=== PATIENT | female | born 1950 | race Caucasian/White ===

== ENCOUNTER 2020-07-17 13:56 | Emergency (ER) | payer MEDICARE, OTHER ==
[~2020-07-17] VITALS: Ht 162.6 cm; Wt 100.0 kg
[2020-07-17 16:10] VITALS: BP 122/78
== END 2020-07-17 16:11 | disposition home or self-care (01) ==
LOC: ER 14:24 → EDBD 14:24 → ER 16:11
DX: S09.21XA Traumatic rupture of right ear drum, initial encounter (principal); W22.8XXA Striking against or struck by other objects, initial encounter; Y93.E8 Activity, other personal hygiene; Y92.012 Bathroom of single-family (private) house as the place of occurrence of the external cause; I10 Essential (primary) hypertension
CPT/HCPCS: 99281

== ENCOUNTER 2021-02-24 17:42 | Emergency (ER) | payer MEDICARE, MEDICAID ==
[~2021-02-24] VITALS: Ht 160 cm; Wt 61.0 kg
[2021-02-24] MEDS ORDERED: ASPIRIN 81MG TABLET PO ONE (18:30)
[2021-02-24] MEDS ORDERED: ONDANSETRON HCL 4MG/2ML INJ IV ONE (18:30)
[2021-02-24] MEDS ORDERED: SODIUM CHLORIDE 0.9% 1,000 ML IV ONE (18:30)
[2021-02-24 18:42] LABS: CHLORIDE 111 mEq/L (98-107)
[2021-02-24 18:48] LABS: HEMATOCRIT. 40.1 % (36.0-48.0); HEMOGLOBIN. 13.5 g/dL (12.0-16.0); MEAN CORPUSCULAR HEMOGLOBIN 30.5 pg (28.0-32.0); MEAN CORPUSCULAR VOLUME 90.8 fL (81.0-99.0); MEAN PLATELET VOLUME 8.1 fl (7.4-10.4); PLATELET 235 x1000/uL (130-400); RED BLOOD CELL COUNT 4.42 mill/uL (4.2-5.4); RED CELL DISTRIBUTION WIDTH 14.1 % (11.6-14.6)
[2021-02-24 21:41] LABS: PLATELET ESTIMATE NORMAL
[2021-02-24 23:50] VITALS: BP 146/94
== END 2021-02-24 23:50 | disposition home or self-care (01) ==
LOC: ER 17:42
DX: R06.02 Shortness of breath (principal); E78.00 Pure hypercholesterolemia, unspecified; I10 Essential (primary) hypertension
CPT/HCPCS: 36415; 71045; 80053; 83690; 83880; 84484; 85025; 93005; 99285; J7030

== ENCOUNTER 2021-03-30 11:00 | Inpatient (IN) | payer MEDICARE, MEDICAID ==
[~2021-03-30] VITALS: Ht 167.6 cm; Wt 73.0 kg
[2021-03-30 12:05] LABS: HEMATOCRIT. 36.9 % (36.0-48.0); HEMOGLOBIN. 12.7 g/dL (12.0-16.0); MEAN CORPUSCULAR HEMOGLOBIN 31.3 pg (28.0-32.0); MEAN CORPUSCULAR VOLUME 90.7 fL (81.0-99.0); MEAN PLATELET VOLUME 8.4 fl (7.4-10.4); PLATELET 138 x1000/uL (130-400); RED BLOOD CELL COUNT 4.06 mill/uL (4.2-5.4); RED CELL DISTRIBUTION WIDTH 13.8 % (11.6-14.6)
[2021-03-30 12:14] LABS: CHLORIDE 93 mEq/L (98-107)
[2021-03-30] MEDS ORDERED: FAMOTIDINE 20MG/2ML VIAL IV STA (12:17)
[2021-03-30] MEDS ORDERED: ONDANSETRON HCL 4MG/2ML INJ IV STA (12:17)
[2021-03-30] MEDS ORDERED: SODIUM CHLORIDE 0.9% 500 ML IV ONE (12:30)
[2021-03-30 12:55] LABS: PLATELET ESTIMATE NORMAL
[2021-03-30 14:17] LABS: CLARITY URINE CLEAR (CLEAR); COLOR URINE YELLOW (YELLOW); KETONES URINE NEGATIVE (NEGATIVE); LEUKOCYTE ESTERASE URINE 1+ (NEGATIVE); NITRITE URINE NEGATIVE (NEGATIVE); OCCULT BLOOD URINE 2+ (NEGATIVE); PH URINE 6.5 (4.5-8.0); PROTEIN URINE 2+ (NEGATIVE); SPECIFIC GRAVITY URINE 1.009 (1.005-1.030); UROBILINOGEN URINE 0.2 E.U./dL (0.2-1.0)
[2021-03-30] MEDS ORDERED: ACETAMINOPHEN 325MG TABLET PO ONE (14:30)
[2021-03-30] MEDS ORDERED: SODIUM CHLORIDE 0.9% 1000ML BAG (SEPSIS BOLUS) IV ONE (14:30)
[2021-03-30] MEDS ORDERED: LEVOFLOXACIN 500MG PREMIX 100 ML IV ONE (14:30)
[2021-03-30] MEDS ORDERED: CEFTRIAXONE 1 G PREMIX 50 ML IV ONE (14:30)
[2021-03-30 20:06] VITALS: BP 133/73
[2021-03-30] MEDS ORDERED: ONDANSETRON HCL 4MG/2ML INJ IV PRN (20:15)
[2021-03-30] MEDS ORDERED: ACETAMINOPHEN 325MG TABLET PO PRN (20:15)
[2021-03-30 20:53] LABS: HEMATOCRIT. 35.8 % (36.0-48.0); MEAN CORPUSCULAR HEMOGLOBIN 30.6 pg (28.0-32.0); MEAN PLATELET VOLUME 8.3 fl (7.4-10.4); PLATELET 131 x1000/uL (130-400); RED BLOOD CELL COUNT 3.94 mill/uL (4.2-5.4); RED CELL DISTRIBUTION WIDTH 13.6 % (11.6-14.6)
[2021-03-30 21:17] LABS: CHLORIDE 101 mEq/L (98-107)
[2021-03-30 21:34] LABS: PLATELET ESTIMATE NORMAL
[2021-03-30] MEDS: DEXT 5%/0.45% NACL KCL 20MEQ/L 1,000 ML IV SCH (22:06)
[2021-03-30] MEDS: PIPERACILLIN/TAZOBACTAM 3.375 G in DEXTROSE 5% WATER 50 ML IV SCH (22:06)
[2021-03-30] MEDS: ENOXAPARIN 40MG/0.4ML SYR SUBCUT SCH (22:06)
[2021-03-31] VITALS: BP 133/74
[2021-03-31] MEDS ORDERED: POTASSIUM CHLORIDE INJ 50 MEQ in DEXT 5% WATER 250 ML IV SCH (01:00)
[2021-03-31 04:00] VITALS: BP 148/83
[2021-03-31] MEDS: PIPERACILLIN/TAZOBACTAM 3.375 G in DEXTROSE 5% WATER 50 ML IV SCH ×3 (06:31→22:09)
[2021-03-31 06:54] LABS: HEMATOCRIT. 33.7 % (36.0-48.0); HEMOGLOBIN. 11.3 g/dL (12.0-16.0); MEAN CORPUSCULAR HEMOGLOBIN 30.7 pg (28.0-32.0); MEAN CORPUSCULAR VOLUME 91.6 fL (81.0-99.0); PLATELET 137 x1000/uL (130-400); RED BLOOD CELL COUNT 3.68 mill/uL (4.2-5.4); RED CELL DISTRIBUTION WIDTH 13.7 % (11.6-14.6)
[2021-03-31 07:30] LABS: CHLORIDE 101 mEq/L (98-107)
[2021-03-31 07:59] VITALS: BP 142/75
[2021-03-31] MEDS ORDERED: POTASSIUM CHLORIDE 20MEQ TABLET SR PO SCH (08:30)
[2021-03-31] MEDS: PANTOPRAZOLE SODIUM 40 MG/VIAL IV SCH (09:18)
[2021-03-31 12:28] VITALS: BP 147/76
[2021-03-31] MEDS: DEXT 5%/0.45% NACL KCL 20MEQ/L 1,000 ML IV SCH (12:55)
[2021-03-31] MEDS ORDERED: BISACODYL 10MG SUPP PR PRN (14:45)
[2021-03-31] MEDS ORDERED: NALOXONE HCL 0.4MG/ML VIAL IV PRN (14:45)
[2021-03-31] MEDS ORDERED: LACTULOSE 20G/30ML UDC PO PRN (14:45)
[2021-03-31] MEDS ORDERED: DIPHENHYDRAMINE 50MG/ML VIAL IV PRN (14:45)
[2021-03-31] MEDS ORDERED: IPRATROPIUM/ALBUTEROL 0.5-3(2.5)MG/3ML NEB HHN PRN (14:45)
[2021-03-31] MEDS ORDERED: MORPHINE SULFATE 2 MG/ML CPJ (NOT FOR IM USE) IV PRN (14:45)
[2021-03-31 15:20] LABS: PLATELET ESTIMATE NORMAL
[2021-03-31 16:00] VITALS: BP 133/74
[2021-03-31 18:30] LABS: INR 1.1; PROTHROMBIN TIME 11.9 sec (9.6-11.0)
[2021-03-31 20:00] VITALS: BP 140/78
[2021-03-31] MEDS: ENOXAPARIN 40MG/0.4ML SYR SUBCUT SCH (22:10)
[2021-03-31] MEDS: HYDROCODONE/ACETAMINOPHEN 5/325MG TABLET PO PRN (22:11)
[2021-04-01] VITALS: BP 134/68
[2021-04-01] MEDS: DEXT 5%/0.45% NACL KCL 20MEQ/L 1,000 ML IV SCH ×2 (00:40→14:00)
[2021-04-01 04:00] VITALS: BP 137/75
[2021-04-01] MEDS: PIPERACILLIN/TAZOBACTAM 3.375 G in DEXTROSE 5% WATER 50 ML IV SCH ×2 (05:22→14:04)
[2021-04-01 08:00] VITALS: BP 153/86
[2021-04-01 08:08] LABS: HEMATOCRIT. 34.8 % (36.0-48.0); HEMOGLOBIN. 11.8 g/dL (12.0-16.0); MEAN CORPUSCULAR HEMOGLOBIN 30.7 pg (28.0-32.0); MEAN CORPUSCULAR VOLUME 90.6 fL (81.0-99.0); MEAN PLATELET VOLUME 8.9 fl (7.4-10.4); PLATELET 164 x1000/uL (130-400); RED BLOOD CELL COUNT 3.85 mill/uL (4.2-5.4); RED CELL DISTRIBUTION WIDTH 13.7 % (11.6-14.6)
[2021-04-01 08:11] LABS: CHLORIDE 100 mEq/L (98-107)
[2021-04-01 08:21] LABS: LDL CHOLESTEROL 69 mg/dL (5-100)
[2021-04-01 08:22] LABS: HDL CHOLESTEROL 10 mg/dL (40-59)
[2021-04-01 08:23] LABS: T4 FREE 1.35 ng/dL (0.76-1.46)
[2021-04-01] MEDS: PANTOPRAZOLE SODIUM 40 MG/VIAL IV SCH (08:33)
[2021-04-01] MEDS: HYDROCODONE/ACETAMINOPHEN 5/325MG TABLET PO PRN (10:31)
[2021-04-01 12:00] VITALS: BP 152/68
[2021-04-01] MEDS ORDERED: POTASSIUM CHLORIDE 20MEQ TABLET SR PO NR (12:45)
[2021-04-01 16:00] VITALS: BP 157/84
[2021-04-01] MEDS ORDERED: LEVO500T89 MT (16:34)
[2021-04-01 16:59] VITALS: BP 157/84
[2021-04-01 17:31] LABS: PLATELET ESTIMATE NORMAL
[2021-04-01] MEDS ORDERED: LEVOFLOXACIN 500MG TABLET PO SCH (19:00)
== END 2021-04-01 18:22 | disposition home or self-care (01) | DRG 872 ==
LOC: ER 11:00 → ENRESERV 16:59 → 6WST 19:41
PROVIDERS: ADMIT Internal Medicine; ATTEND Internal Medicine
DX: A41.51 Sepsis due to Escherichia coli [E. coli] (principal); E87.1 Hypo-osmolality and hyponatremia; N10 Acute pyelonephritis; E44.1 Mild protein-calorie malnutrition; E87.6 Hypokalemia; E86.0 Dehydration; I10 Essential (primary) hypertension; Z20.822 Contact with and (suspected) exposure to COVID-19; E78.5 Hyperlipidemia, unspecified; E78.00 Pure hypercholesterolemia, unspecified; D64.9 Anemia, unspecified; K76.0 Fatty (change of) liver, not elsewhere classified; R73.9 Hyperglycemia, unspecified; Z90.49 Acquired absence of other specified parts of digestive tract; Z68.26 Body mass index [BMI] 26.0-26.9, adult
CPT/HCPCS: 36415; 71045; 74176; 80048; 80053; 80061; 81003; 83036; 83605; 83735; 84132; 84145; 84439; 84443; 84484; 85025; 87077; 87186; 87426; 93005; 93306; 93970; 99285; C9113; J0696; J1650; J1956; J2405; J2543; J3480; J3490; J7030; J7040; J7060

== ENCOUNTER 2022-06-29 09:48 | Emergency (ER) | payer MEDICARE, MEDICAID ==
[~2022-06-29] VITALS: Ht 165.1 cm; Wt 81.8 kg
[~2022-06-29 09:48] MED LIST: LEVO-65 MT
[2022-06-29 10:12] LABS: BASOPHILS % 0.8 % (0.0-2.0); EOSINOPHILS % 5.6 % (0.0-5.0); HEMATOCRIT. 38.7 % (36.0-48.0); HEMOGLOBIN. 13.4 g/dL (12.0-16.0); LYMPHOCYTES % 35.4 % (20.0-50.0); MEAN CORPUSCULAR HEMOGLOBIN 30.7 pg (28.0-32.0); MEAN CORPUSCULAR VOLUME 88.9 fL (81.0-99.0); MEAN PLATELET VOLUME 8.9 fl (7.4-10.4); MONOCYTES % 8.7 % (2.0-8.0); NEUTROPHILS % 49.5 % (40.0-76.0); PLATELET 228 x1000/uL (130-400); RED BLOOD CELL COUNT 4.35 mill/uL (4.2-5.4); RED CELL DISTRIBUTION WIDTH 13.2 % (11.6-14.6)
[2022-06-29 10:18] LABS: CHLORIDE 102 mEq/L (98-107)
[2022-06-29 11:00] LABS: CLARITY URINE CLEAR (CLEAR); COLOR URINE YELLOW (YELLOW); KETONES URINE NEGATIVE (NEGATIVE); LEUKOCYTE ESTERASE URINE TRACE (NEGATIVE); NITRITE URINE NEGATIVE (NEGATIVE); OCCULT BLOOD URINE NEGATIVE (NEGATIVE); PROTEIN URINE NEGATIVE (NEGATIVE); SPECIFIC GRAVITY URINE 1.007 (1.005-1.030); UROBILINOGEN URINE 0.2 E.U./dL (0.2-1.0)
[2022-06-29] MEDS ORDERED: IOHEXOL-300 100 ML BOTTLE ONE (12:48)
[2022-06-29] MEDS ORDERED: ONDANSETRON HCL 4MG/2ML INJ IV ONE (13:45)
[2022-06-29] MEDS ORDERED: FAMOTIDINE 20MG/2ML VIAL IV ONE (13:45)
[2022-06-29] MEDS ORDERED: SODIUM CHLORIDE 0.9% 1,000 ML IV ONE (13:45)
[2022-06-29] MEDS ORDERED: KETOROLAC 30MG/ML VIAL IV ONE (14:45)
[2022-06-29] MEDS ORDERED: DICYCLOMINE HCL 10MG CAPSULE PO ONE (14:45)
[2022-06-29 15:09] VITALS: BP 153/88
[2022-06-29] MEDS ORDERED: IBUP-2029 MT (16:14)
== END 2022-06-29 16:32 | disposition home or self-care (01) ==
LOC: ER 09:48
DX: R10.32 Left lower quadrant pain (principal)
CPT/HCPCS: 36415; 74177; 80053; 81003; 83690; 85025; 96361; 96374; 96375; 99285; J1885; J2405; J3490; J7030; Q9967

== ENCOUNTER 2023-02-24 10:07 | Emergency (ER) | payer MEDICARE, MEDICAID ==
[~2023-02-24] VITALS: Ht 162.6 cm; Wt 91.0 kg
[~2023-02-24 10:07] MED LIST changes: +IBUP-2029 MT
[2023-02-24 10:17] VITALS: BP 150/90; PULSE 81; RESP 16; TEMP 100.5; O2SAT 97
[2023-02-24 11:35] LABS: BASOPHILS % 1.2 % (0.0-2.0); EOSINOPHILS % 2.3 % (0.0-5.0); HEMATOCRIT. 43.4 % (36.0-48.0); HEMOGLOBIN. 14.7 g/dL (12.0-16.0); LYMPHOCYTES % 22.8 % (20.0-50.0); MEAN CORPUSCULAR HEMOGLOBIN 29.7 pg (28.0-32.0); MEAN CORPUSCULAR HGB CONC 33.9 g/dL (31.0-37.0); MEAN CORPUSCULAR VOLUME 87.6 fL (81.0-99.0); MEAN PLATELET VOLUME 8.6 fl (7.4-10.4); MONOCYTES % 11.3 % (2.0-8.0); NEUTROPHILS % 62.4 % (40.0-76.0); PLATELET 213 x1000/uL (130-400); RED BLOOD CELL COUNT 4.95 mill/uL (4.2-5.4); WHITE BLOOD COUNT 5.3 x1000/uL (4.5-11.0)
[2023-02-24 11:55] LABS: ALANINE AMINOTRANSFERASE 30 IU/L (10-49); ALBUMIN 4.6 g/dL (3.2-4.8); ASPARTATE AMINOTRANSFERASE 32 IU/L (<34); BILIRUBIN TOTAL 0.6 mg/dL (0.1-1.0); CALCIUM 9.9 mg/dL (8.7-10.4); CARBON DIOXIDE 29 mEq/L (21-32); CHLORIDE 101 mEq/L (98-107); CREATININE 0.8 mg/dL (0.6-1.0); GLUCOSE 123 mg/dL (70-105); POTASSIUM 4.1 mEq/L (3.5-5.1); PROTEIN TOTAL 7.3 g/dL (6.0-8.3); SODIUM 137 mEq/L (136-145); UREA NITROGEN BLOOD 8 mg/dL (9-23)
[2023-02-24 11:59] LABS: INR 1.1; PROTHROMBIN TIME 11.5 sec (9.6-11.0)
[2023-02-24 12:16] LABS: TROPONIN I HIGH SENSITIVITY < 4 ng/L (3.0-34)
[2023-02-24] MEDS ORDERED: IBUPROFEN 800MG TABLET PO ONE (13:45)
[2023-02-24] MEDS ORDERED: IBUP-2030 MT (14:11)
[2023-02-24] MEDS ORDERED: ACET-2708 MT (14:11)
[2023-02-24] MEDS ORDERED: IBUPROFEN 400MG TABLET PO NR (20:45)
== END 2023-02-24 14:11 | disposition home or self-care (01) ==
LOC: ER 10:07
DX: R05.9 Cough, unspecified (principal); R50.9 Fever, unspecified; I10 Essential (primary) hypertension; E78.00 Pure hypercholesterolemia, unspecified; Z90.49 Acquired absence of other specified parts of digestive tract
CPT/HCPCS: 36415; 71045; 80053; 84484; 85025; 93005; 99285

== ENCOUNTER 2023-02-26 07:26 | Emergency (ER) | payer MEDICARE, MEDICAID ==
[~2023-02-26] VITALS: Ht 165.1 cm; Wt 77.0 kg
[~2023-02-26 07:26] MED LIST changes: +ACET-2708 MT; +IBUP-2030 MT
[2023-02-26 08:00] VITALS: O2SAT 98
[2023-02-26] MEDS ORDERED: IBUPROFEN 600MG TABLET PO ONE (08:30)
[2023-02-26] MEDS ORDERED: BENZ100C86 MT (09:02)
[2023-02-26 10:46] VITALS: BP 112/72; PULSE 72; RESP 18; TEMP 98.1
== END 2023-02-26 10:48 | disposition home or self-care (01) ==
LOC: ER 07:26
DX: B34.9 Viral infection, unspecified (principal); I10 Essential (primary) hypertension; E78.00 Pure hypercholesterolemia, unspecified; Z90.49 Acquired absence of other specified parts of digestive tract
CPT/HCPCS: 71045; 99283